=== PATIENT | female | born 1995 | race Caucasian/White ===

== ENCOUNTER 2024-12-13 22:58 | Emergency (ER) | payer OTHER ==
[~2024-12-13] VITALS: Ht 152.4 cm; Wt 51.0 kg
[2024-12-13 23:01] VITALS: TEMP 98
[2024-12-13] MEDS: LIDOcaine 1% (10mg/ml)w/preservative inj. 20ml MDV SQ ONE (23:49)
[2024-12-14 00:12] VITALS: BP 120/78; PULSE 78; RESP 16; O2SAT 99
== END 2024-12-14 00:17 | disposition home or self-care (01) ==
LOC: ER 22:59
DX: S61.211A Laceration without foreign body of left index finger without damage to nail, initial encounter (principal); W45.8XXA Other foreign body or object entering through skin, initial encounter; Y93.89 Activity, other specified; Y92.89 Other specified places as the place of occurrence of the external cause; Y99.8 Other external cause status
CPT/HCPCS: 12001; 99282; J3490

== ENCOUNTER 2024-12-30 15:22 | Emergency (ER) | payer OTHER ==
[~2024-12-30] VITALS: Ht 152.4 cm; Wt 56.2 kg
[2024-12-30 15:28] VITALS: BP 110/74; PULSE 7; RESP 16; TEMP 98.8; O2SAT 99
== END 2024-12-30 16:56 | disposition home or self-care (01) ==
LOC: ER 15:23
DX: S61.211D Laceration without foreign body of left index finger without damage to nail, subsequent encounter (principal); X58.XXXD Exposure to other specified factors, subsequent encounter
CPT/HCPCS: 99281